=== PATIENT | male | born 1930 | race Caucasian/White ===

== ENCOUNTER → 2016-09-20 | Outpatient (CLI) | payer OTHER ==
[~2016-09-20] MED LIST: IOPAMIDOL (ISOVUE 370) 100 ML BTL IV ONE
--- NOTE | 2016-09-20 15:02 | CT ---
CT Angiogram Neck With Contrast Enhancement and Multiplanar Reconstructions at 0959 hours History: R55, syncope and collapse Comparison: None . Technique: 1.25 mm axial multidetector helical CT imaging was performed through the neck while 85 mL Isovue-370 were injected intravenously without complication. The images were then transferred to an independent workstation where multiplanar and three-dimensional reconstructions were performed by the interpreting physician and reviewed at multiple windows. Dose reduction techniques were utilized. CTA Findings: Moderate atherosclerotic plaque involving the aorta and origin of all the great vessels . Tortuous bilateral common carotid arteries. The right carotid bulb demonstrates moderate atheroscle rotic plaque with 30% diameter stenosis of the proximal right internal carotid artery. No complete oc clusion or dissection. Left carotid bulb demonstrates moderate atherosclerotic plaque with 45% stenos is of the proximal left internal carotid artery. No complete occlusion or dissection Dominant left vertebral artery with both vertebral arteries appearing patent. Vertebrobasilar junctio n is patent. No vertebral dissection or complete occlusion. No significant neck lymphadenopathy. Incidental cerebrovascular accident chronic calcification in lynn ateral cavernous internal carotid arteries. Cervical spondylosis with degenerative disk disease from C2-C3 through C6-C7, and degenerative des listhesis. Impression: 1. Moderate atherosclerotic disease of the aortic arch and origin of the great vessels. 2. Moderate atherosclerotic disease involving bilateral carotid bulbs, left greater than right. 3. Left ICA 50% atherosclerotic stenosis. 4. Right ICA 30% atherosclerotic stenosis. 5. Patent vertebral basilar arteries with a dominant left vertebral artery. Measurement of carotid stenosis is based on the residual internal carotid diameter with [place] n Symptomatic Carotid Endarterectomy Trial (NASCET) based stenosis levels.
== END ==
LOC: CIMAGING 09:20
PROVIDERS: ATTEND Psychiatry & Neurology Neurology
DX: R55 Syncope and collapse (principal); N19 Unspecified kidney failure
CPT/HCPCS: 70498; Q9967; 82565-PO

== ENCOUNTER → 2016-11-02 | Outpatient (CLI) | payer OTHER ==
[~2016-11-02] MED LIST changes: -IOPAMIDOL (ISOVUE 370) 100 ML BTL IV ONE; +IOPAMIDOL (ISOVUE-300) 100 ML BTL IV ONE
== END ==
LOC: FIMAGING 11:16
PROVIDERS: ATTEND Psychiatry & Neurology Neurology
DX: R55 Syncope and collapse (principal); R29.818 Other symptoms and signs involving the nervous system
CPT/HCPCS: 70496; Q9967

== ENCOUNTER 2016-11-07 12:56 | Inpatient (IN) | payer OTHER ==
--- NOTE | 2016-11-07 13:30 | CPEKG ---
Heart Rate: 73 RR Interval: 822 P-R Interval: 180 QRSD Interval: 152 QT Interval: 400 QTC Interval: 441 P Paulina: 39 QRS Paulina: 44 T Wave Paulina: 7 EKG Severity - ABNORMAL ECG - EKG Impression: SINUS RHYTHM EKG Impression: PROBABLE LEFT ATRIAL ABNORMALITY EKG Impression: RIGHT BUNDLE BRANCH BLOCK Electronically Signed By: Felipe Uribe 10-Nov-2016 12:07:06
[2016-11-07] MEDS ORDERED: NS 500 ML IV ONE (14:11)
[2016-11-07 14:20] LABS: % IMMATURE GRANULYOCYTES 0.3 % (0.0-1.1); ABSOLUTE IMMATURE GRANULOCYTES 0.02 10^3/uL (0.00-0.10); ADD DIFF? NO; ADD MORPH? NO; ADD SCAN? NO; ATYPICAL LYMPHOCYTE FLAG 10 (0-99); FRAGMENT RBC FLAG 0 (0-99); HEMOGLOBIN 15.3 g/dL (13.7-17.5); LEFT SHIFT FLG 0 (0-99); LIPEMIA HEMOLYSIS FLAG 90 (0-99); MEAN CELL HEMOGLOBIN 33.3 pg (27.9-34.1); MEAN CELL HEMOGLOBIN CONCENTR. 34.8 g/dL (32.4-36.7); MEAN CELL VOLUME 95.9 fL (81.5-99.8); MEAN PLATELET VOLUME 9.2 fL (8.7-11.7); PLATELET CLUMPS FLAG 20 (0-99); PLATELET COUNT 218 10^3/uL (150-400); RED BLOOD CELL COUNT 4.59 10^6/uL (4.40-6.38)
[2016-11-07 14:27] LABS: ANION GAP 12 mEq/L (8-16); CALCIUM 9.1 mg/dL (8.5-10.4); CARBON DIOXIDE 25 mEq/l (22-31); CHLORIDE 103 mEq/L (97-110); CREATININE 0.8 mg/dL (0.7-1.3); GLOMERULAR FILTRATION RATE > 60; GLUCOSE 100 mg/dL (70-100); POTASSIUM 4.2 mEq/L (3.5-5.2); SODIUM 140 mEq/L (134-144)
[2016-11-07 14:41] LABS: TROPONIN I < 0.012 ng/mL (0-0.034)
[2016-11-07 14:50] LABS: COLOR YELLOW; LEUKOCYTE ESTERASE,URINE NEGATIVE (NEGATIVE); NITRITE,URINE NEGATIVE (NEGATIVE)
[2016-11-07 15:09] LABS: WBC,URINE 0-1 /hpf (0-3)
[2016-11-07 15:10] LABS: BACTERIA TRACE /hpf (NONE SEEN); MUCUS 1+ /lpf (NONE-1+)
--- NOTE | 2016-11-07 15:28 | UCPHY ---
H & P Patient Type: Established Chief Complaint Nursing Narrative: BLOOD PRESSURE HIGH, LIGHTHEADED, NEARLY PASSED OUT SEVERAL TIMES, HAS TAKEN TWO NITROSTAT, AND EXTRA BENEZEPRIL Time Seen by Provider: 11/07/16 13:56 HPI/ROS: CHIEF COMPLAINT: Lightheadedness HISTORY OF PRESENT ILLNESS: This is an 85-year-old male who states that since this fall he has had nearly daily episodes of lightheadedness, feeling like he might faint. Denies vertiginous symptoms. These episodes can occur when he has significantly elevated blood pressure or with his blood pressure is normal. He has been evaluated by Dr. Avery as well as by Dr. Uribe. Patient had a Holter monitor for 30 days done a month and a half ago that demonstrated 10 second episode of atrial fibrillation but no other abnormalities. Patient is scheduled to have a LINQ placed tomorrow. Today the patient developed a episode of lightheadedness which was by his description much worse than previously. He still continues to feel lightheaded even while lying flat. When he developed the lightheadedness he noted his blood pressure to be 212 systolic. He took a Nitrostat his blood pressure diminished to 180 systolic. He took an additional Nitrostat as well as an additional dose of his Benadryl 5 mg and on arrival to the emergency department his blood pressure is 1/60. He tells me that does lightheadedness has been persistent for the last 2 and half to almost 3 hours. Patient denies any chest pain. He denies shortness of breath. Denies a sensation of palpitations. No recent vomiting, diarrhea, cold, cough symptoms, and no headache recently. No complaints of vertigo or spinning sensation. REVIEW OF SYSTEMS: Aside from elements discussed in the HPI, a comprehensive 10-point review of systems was reviewed and is negative. PAST MEDICAL HISTORY: Hypertension, reflux. No history of coronary artery disease. Does report he has a systolic murmur. Echocardiogram follow-up scheduled the next several months. SOCIAL HISTORY: Nonsmoker. VITAL SIGNS Reviewed by me. GENERAL: Well-developed, well-nourished, resting comfortably in no respiratory distress. States he feels lightheaded when he is asked to sit up. HEENT: Atraumatic. Eyes: No icterus, no injection. Mouth: moist mucous membranes. No erythema or lesions. Neck: supple with no adenopathy. LUNGS: Clear to auscultation bilaterally, no wheezes, rhonchi or rales. CARDIAC: Regular rate and rhythm, blowing systolic murmur. ABDOMEN: Soft, nontender, nondistended, bowel sounds normal. BACK: No CVA tenderness. EXTREMITIES: No trauma. No edema. Range of motion is normal throughout. NEURO: Alert and oriented, grossly nonfocal. SKIN: Warm and dry, no rash. PSYCHIATRIC: Normal mentation, no agitation. - Personal History Current Tetanus/Diphtheria Vaccine: Unsure - Medical/Surgical History Hx Asthma: No Hx Chronic Respiratory Disease: No Hx Diabetes: No Hx Cardiac Disease: Yes Hx Renal Disease: No Hx Cirrhosis: No Hx Alcoholism: No Hx HIV/AIDS: No Hx Splenectomy or Spleen Trauma: No Other PMH: HTN. vasectomy. lami. carpal tunnel - Family History Significant Family History: No pertinent family hx - Social History Smoking Status: Former smoker Constitutional: Initial Vital Signs Temperature (C) 36.6 C 11/07/16 13:06 Heart Rate 75 11/07/16 13:06 Respiratory Rate 16 11/07/16 13:06 Blood Pressure 160/78 H 11/07/16 13:06 O2 Sat (%) 95 11/07/16 13:06 O2 Delivery Mode Nasal Cannula O2 (L/minute) 1 Allergies/Adverse Reactions: Penicillins Allergy (Verified 11/07/16 13:11) Home Medications: Medication Instructions Recorded Aspirin EC [Aspirin EC 81 mg (*)] 81 mg PO HS 11/07/16 Benazepril HCl 5 mg PO DAILY 11/07/16 C/E/Zn/Cu/OM3/DHA/EPA/LUT/ZEAX 2 each PO DAILY 11/07/16 [Preservision Areds 2 Softgel] Cholecalciferol Vit D3 [Vitamin D3 2,000 units PO .TWICE WEEKLY 11/07/16 (*)] Cyanocobalamin [Vitamin B12 (*)] 1,000 mcg PO .TWICE WEEKLY 11/07/16 Omeprazole [Prilosec 20 mg] 40 mg PO HS 11/07/16 Simvastatin [Zocor] 40 mg PO HS 11/07/16 amLODIPine BESYLATE [Norvasc 2.5 2.5 mg PO DAILY #30 tab 11/09/16 mg (*)] Medical Decision Making - Diagnostics EKG Interpretation: 12-LEAD EKG: Please see the full report in [facility]. My interpretation: Right bundle branch block. ED Course/Re-evaluation: 85-year-old male presenting with lightheadedness. He has had symptoms similar for several months but today's episode is much more severe and persistent. Patient initially had significantly elevated blood pressures, and took 2 nitroglycerin tablets. On arrival to the emergency department his blood pressure remains [address]. On my examination is blood pressure was 120/55. On re- examination patient's blood pressure had increased to 155/83. EKG discussed with Dr. Miguel Ángel Gonzalez. Patient's bundle branch block appears to be pre-existing. Labs are reassuring. Negative troponin. Patient will be transferred and admitted to [facility], for further evaluation of this episode of lightheadedness. At the time admission decision the patient reports some ongoing feelings of lightheadedness. Differential Diagnosis: Differential diagnosis of the patient's dizziness was considered including but not limited to peripheral and central causes of vertigo, cardiac arrhythmias, cardiac ischemia, electrolyte disturbances, neurologic causes, orthostatic causes including dehydration, and blood loss. Consult/Admit Bed Type: Dr Sapp, [facility] [place] - Data Points Laboratory Results: Laboratory Results 11/08/16 05:12 11/08/16 05:12 Medications Given: Discontinued Medications Amlodipine Besylate (Norvasc) 2.5 mg PO DAILY [facility] Stop: 05/06/17 18:29 Last Admin: 11/09/16 08:19 Dose: 2.5 mg Aspirin Buffered (Aspirin Ec) 81 mg PO HS NATAN Stop: 05/06/17 20:59 Last Admin: 11/08/16 20:15 Dose: 81 mg Atorvastatin Calcium (Lipitor) 20 mg PO HS NATAN Stop: 05/06/17 20:59 Last Admin: 11/08/16 20:15 Dose: 20 mg Benazepril HCl (Lotensin) 5 mg PO DAILY NATAN Stop: 05/07/17 08:59 Last Admin: 11/09/16 08:19 Dose: 5 mg Enoxaparin Sodium (Lovenox) 40 mg SC DAILY NATAN Stop: 05/08/17 08:59 Last Admin: 11/09/16 08:20 Dose: Not Given Sodium Chloride (Ns) 500 mls @ 0 mls/hr IV ONCE ONE PRN Reason: As Directed Stop: 11/07/16 14:12 Last Admin: 11/07/16 14:26 Dose: 500 mls Lidocaine HCl (Lidocaine Hcl 1%) 0 ml MISC ONCE ONE Stop: 11/08/16 08:31 Last Admin: 11/08/16 09:00 Dose: Not Given Meclizine HCl (Meclizine Hcl) 12.5 mg PO BID PRN PRN Reason: Dizziness Stop: 05/07/17 12:48 Last Admin: 11/08/16 15:55 Dose: 12.5 mg Multivitamins/Minerals (Preservision Areds2 Formula) 2 each PO DAILY NATAN Stop: 05/07/17 08:59 Last Admin: 11/09/16 08:23 Dose: 1 each Pantoprazole Sodium (Protonix) 40 mg PO DAILY [facility] Stop: 05/07/17 08:59 Last Admin: 11/09/16 08:18 Dose: 40 mg Departure - Departure Disposition: [facility] Acute Clinical Impression: Lightheadedness, Rule out acute coronary syndrome Condition: Fair - PQRS PQRS Measurement: 134: Depression screening and followup, PRIME MD-PHQ2 (12 years and older) Over the last 2 weeks, how often have you been bothered by any of the following problems? 1. Feeling down, depressed, or hopeless? 2. Little interest or pleasure in doing things? Patient answered no to both 1 and 2 130: Documentation of medications. Reviewed all patient medications, doses, route and frequency. 226: Do you smoke? No. 47: 65 and older: Advanced care planning. Patient has advanced directive. 51: 18 years old and older with diagnosis of COPD, spirometry performance. Patient has no history of COPD 52: 18 years old and older with COPD and symptoms of COPD or FEV1<60% predicted prescribed a B Agonist. Patient has no history of COPD.
[2016-11-07] MEDS ORDERED: ONDANSETRON 4 MG/2 ML VIAL IVP PRN (18:23)
[2016-11-07] MEDS ORDERED: ONDANSETRON DISINTEGRATING 4 MG TAB PO PRN (18:23)
[2016-11-07] MEDS ORDERED: ACETAMINOPHEN 325 MG TAB PO PRN (18:23)
--- NOTE | 2016-11-07 19:02 | GHP ---
[f rep st] HISTORY AND PHYSICAL DATE OF ADMISSION: 11/07/2016 CHIEF COMPLAINT: Dizziness. HISTORY OF PRESENT ILLNESS: This is an 85-year-old man who has had ongoing dizziness/lightheadednes s since April. This began when he was sitting at his desk and had an episode of syncope. He fe lt he had a prodrome of dizziness. He did not have any shortness of breath or chest pain. This has persisted though he has not had another episode of syncope since then. It is intermittent, comes a nd goes. He has had a thorough workup at this point including brain imaging with CT angio of his he ad and neck. CT angio of his neck showed 50% stenoses but nothing significantly flow-limiting. He has been under the care of Dr. Uribe with Cardiology who was actually planning on placing a Link mo nitor tomorrow. He has had a Holter monitor, which showed 1 episode of Afib though it seemed, per Socrates Uribe's note, unclear if he was actually wearing the monitor at the time that that was seen. He had an echocardiogram about 3 years ago, which I do not have access to. He tells me that his eject ion fraction was mildly diminished. He has never had an ischemic eval. He has never fallen. He do es not feel nauseous with this. It is not associated with any chest pain or shortness of breath. I t is not vertiginous in nature. The patient took his blood pressure at home and found that it was quite elevated with systolic at 22 0. He then took a Nitrostat as well as an extra benazepril. It was as low as 120 in Urgent Care wh ere he presented. PAST MEDICAL/SURGICAL HISTORY: 1. Hiatal hernia. 2. Right bundle branch block. 3. Hyperlipidemia. 4. Hypertension. 5. Heart murmur. 6. GERD. PAST SURGICAL HISTORY: 1. Carpal tunnel release. 2. Cataract. 3. Laminectomy. 4. Prostatectomy. 5. Vasectomy. MEDICATIONS: Please see medication reconciliation. ALLERGIES: Penicillin. FAMILY HISTORY: His father had an UT about [id number]. SOCIAL HISTORY: He has 2 kids, he has a few alcoholic drinks a week. He used to work as an enginee r. PHYSICAL EXAM: VITAL SIGNS: Blood pressure currently 198/86, heart rate of 64, respiration rate 16 , saturating 95% on room air. Temperature 36.4. GENERAL: The patient is a pleasant man who is res ting comfortably in bed in no acute distress. HEENT: Shows to be normocephalic, atraumatic. CARDIO VASCULAR EXAM: Shows a prominent 3/6 crescendo-decrescendo murmur, otherwise, no rubs or gallops. PULMONARY EXAM: Shows lungs clear to auscultation bilaterally. ABDOMINAL EXAM: Soft, nontender, n ondistended. SKIN: No rash. EXAM: No [place]. NEUROLOGIC EXAM: Shows him to be alert and orie nted x3. He has strength intact in his upper and lower extremities. Sensation is intact. He does not have any horizontal nystagmus. PSYCHIATRIC EXAM: Shows normal mood and affect. LABS: CBC is normal. Basic metabolic panel is normal. Troponin is negative. Urinalysis is relati vely unremarkable. DATA: I reviewed his old CT angio of his head and neck. I discussed with Dr. Olson, will admit to med/surg/observation. IMPRESSION AND PLAN: 1. Dizziness: Has had a relatively thorough workup. Given his prominent murmur, would lean toward s cardiovascular etiology. I have written to repeat an echo. He had plans to have a Link device pl aced tomorrow by Dr. Uribe. Will ask my colleague tomorrow to apprise Dr. Uribe of his admission. Consider Link monitor as an inpatient. Could consider an MRI if everything else is negative, thou gh I think that this would be relatively low yield. He has seen Dr. Avery. He has an abnormal EKG though in review of his previous, does not seem to be changed. Would defer an ischemic eval to Cardiology. 2. Hypertension, uncontrolled: I think part of his uncontrolled hypertension is being admitted as an inpatient. I will give him low-dose amlodipine and will follow this overnight. We will also con tinue his benazepril. 3. Venous thromboembolism risk: He is moderate risk though he is being admitted on observation. W ould start Lovenox if he stays as an inpatient. 4. He would like to be full code, full tube, but would not want any overly heroic method jolie-angie can. /[id number]/MODL
[2016-11-07] MEDS ORDERED: CHOLECALCIFEROL VIT D3 1,000 UNITS TAB PO SCH (21:00)
[2016-11-07] MEDS ORDERED: NON-FORMULARY NEW DRUG (Simvastatin [Zocor] 40 MG) PO SCH (21:00)
[2016-11-07] MEDS ORDERED: CYANO/VITAMIN B12 1000 MCG TAB PO SCH (21:00)
[2016-11-07] MEDS ORDERED: NON-FORMULARY NEW DRUG (Omeprazole [Prilosec 20 Mg] 40 MG) PO SCH (21:00)
[2016-11-07] MEDS: ASPIRIN EC 81 MG TAB PO SCH (21:11)
[2016-11-07] MEDS: ATORVASTATIN CALCIUM 20 MG TAB PO SCH (21:11)
[2016-11-08 05:43] LABS: % IMMATURE GRANULYOCYTES 0.3 % (0.0-1.1); ABSOLUTE IMMATURE GRANULOCYTES 0.02 10^3/uL (0.00-0.10); ADD DIFF? NO; ADD MORPH? NO; ADD SCAN? NO; ATYPICAL LYMPHOCYTE FLAG 0 (0-99); FRAGMENT RBC FLAG 0 (0-99); HEMATOCRIT 41.2 % (40.0-51.0); HEMOGLOBIN 14.1 g/dL (13.7-17.5); LEFT SHIFT FLG 0 (0-99); LIPEMIA HEMOLYSIS FLAG 90 (0-99); MEAN CELL HEMOGLOBIN 33.2 pg (27.9-34.1); MEAN CELL HEMOGLOBIN CONCENTR. 34.2 g/dL (32.4-36.7); MEAN CELL VOLUME 96.9 fL (81.5-99.8); MEAN PLATELET VOLUME 9.1 fL (8.7-11.7); PLATELET CLUMPS FLAG 0 (0-99); PLATELET COUNT 177 10^3/uL (150-400); RED BLOOD CELL COUNT 4.25 10^6/uL (4.40-6.38); RED CELL DISTRIBUTION WIDTH 13.1 % (11.5-15.2)
[2016-11-08 05:53] LABS: ALANINE AMINOTRANSFERASE 30 IU/L (21-72); ALBUMIN 3.4 g/dL (3.5-5.0); ALKALINE PHOSPHATASE 62 IU/L (38-126); ANION GAP 9 mEq/L (8-16); ASPARTATE AMINOTRANSFERASE 18 IU/L (17-59); BILIRUBIN,TOTAL 0.8 mg/dL (0.1-1.4); CARBON DIOXIDE 22 mEq/l (22-31); CHLORIDE 108 mEq/L (97-110); CREATININE 0.8 mg/dL (0.7-1.3); GLOMERULAR FILTRATION RATE > 60; GLUCOSE 93 mg/dL (70-100); POTASSIUM 4.4 mEq/L (3.5-5.2); SODIUM 139 mEq/L (134-144); TOTAL PROTEIN 6.1 g/dL (6.3-8.2)
[2016-11-08] MEDS ORDERED: LIDOCAINE 1% 30 ML SDV ONE (07:59)
[2016-11-08] MEDS ORDERED: LIDOCAINE 1% 30 ML SDV MISC ONE (08:30)
--- NOTE | 2016-11-08 08:49 | SUROPNOTE ---
[facility] Operative Report - Surgery PROCEDURE: Linq implant INDICATION: Dizziness, assessment for arrhythmia PROCEDURE DETAILS: After consent, patient was draped in usual fashion. Localization of the placement with palpation. Lidocaine (1%) was used for local anesthetic. A #12 blade was used for initial incision, followed by the provided blade for proper width. The rail delivery system was placed without difficulty and the device was implanted. SN: [id number] Three antonina were placed over the small incision. No complications were appreciated Device was interrogated with very good waveforms noted Follow up is scheduled.
--- NOTE | 2016-11-08 08:51 | HOSPPROG ---
Hospitalist Progress Note Assessment/Plan: patient is an 85-year-old man has had ongoing dizziness, lightheadedness in April. He had 1 episode of syncope and none further. He does have a prodrome of dizziness. He has had no chest pain or shortness of breath. He has been seen by Dr. Uribe with Cardiology. And has had an extensive w/u with Dr Avery. He shares that his symptoms have improved when at sea level. He was in [place] the month of September and felt overall well. His dizziness starts in the morning and increases through out the day. He is getting a link placed today. today is my 1st encounter with the patient. Chart reviewed. * Dizziness - patient has had a relatively negative workup. - Repeat echo is pending - link device placed this morning - no significant changes in orthostatic vital signs - reviewed CT studies/no clear cut etiology - reviewed his care with Dr Avery/ no MRI indicated at this time - spoke with ENT and her recommendation is for Juarez to get f/u with a dizziness specialist at / DR Ning Ureña (could be multifactorial) - will ask PT and OT to evaluate - trial of meclizine * hypertension/uncontrolled - better this morning - on amlodipine -took ntg at home to bring it down * heart murmur -will follow -if he has / could contribute to his symptoms * dvt prophylaxis: will initiate LMWH *Plan: patient is concerned about falling at home/ will ask PT and OT to further evaluate/ trial of meclizine/ he is not safe for dc and will require another midnight stay for evaluation. Subjective: Juarez does not have any nausea, or room spinning with dizziness/ feeling fine this morning. Objective: Vital Signs Temp Pulse Resp BP Pulse Ox 36.5 C 63 16 144/70 H 95 11/08/16 03:15 11/08/16 03:15 11/08/16 03:15 11/08/16 03:15 11/08/16 03:15 Laboratory Results 11/08/16 05:12 11/08/16 05:12 11/07/16 11/08/16 11/09/16 05:59 05:59 05:59 Intake Total 500 Balance 500 - Physical Exam Constitutional: no apparent distress Eyes: PERRL Ears, Nose, Mouth, Throat: hearing normal Cardiovascular: regular rate and rhythym, systolic murmur Respiratory: no respiratory distress Gastrointestinal: normoactive bowel sounds Skin: warm Musculoskeletal: full muscle strength Neurologic: AAOx3 Psychiatric: interacting appropriately, not anxious ICD10 Worksheet Patient Problems: Problems Problem Status Onset Lightheadedness Acute
[2016-11-08] MEDS ORDERED: BENAZEPRIL HCL 5 MG PO SCH (09:00)
[2016-11-08] MEDS: PANTOPRAZOLE SODIUM 40 MG TAB PO SCH (09:32)
[2016-11-08] MEDS: PRESERVISION AREDS2 FORMULA EYE VIT 1 EACH PO SCH (09:32)
[2016-11-08] MEDS: BENAZEPRIL HCL 10 MG TAB PO SCH (09:37)
--- NOTE | 2016-11-08 11:59 | ECHO ---
[id number] + + [address] : : [place] [address] : : [phone] + + Adult Echocardiographic Report + ----+ :Name: AMAYA BELL Milomariama Date: 11/08/2016 08:41 AM : : Hospital Admission Number: [id number] Location: 389: :: 1930 Gender: Male Height: 67 in : :Age: 85 yrs Race: WH Weight: 147 lb : :Reason For Study: Eval LV Fx : : BSA: 1.8 meters2 : :History: Near Syncope, Post Link : + ----+ MMode/2D Measurements \T\ Calculations IVSd: 1.1 cm LVIDd: 3.9 cm FS: 39.1 % Ao root diam: 3.5 cm LVPWd: 1.0 cm LVIDs: 2.4 cm EDV(Teich): 67.2 ml ACS: 1.3 cm ESV(Teich): 20.0 ml LA dimension: 3.4 cm EF(Teich): 70.2 % LVOT diam: 2.1 cm LVOT area: 3.5 cm2 Normal Measurement Values: + + :LVIDd (3.5-5.7cm) IVSd (0.6-1.1cm) LVPWd (0.6-1.1cm) Aortic Root (2.0-3.7cm)Left Atrium (1.5-4.0cm): :LV Vol(d) (76-115ml) LV Vol(s) (29-48ml) Ejec Fraction (50-65%)PV Rocky (0.6- 1.2m/s) TV Rocky (0.4-1.0m/s) : :MV E Rocky (0.8-1.0m/s)MV A Rocky (0.3-1.0m/s)LVOT Rocky (0.7-1.2m/s) Asc Ao Rocky ( 0.9-1.8m/s) : + + Doppler Measurements \T\ Calculations MV E max rocky: Ao V2 max: LV V1 max: SV(LVOT): 62.2 cm/sec 298.6 cm/sec 71.1 cm/sec 69.1 ml MV A max rocky: Ao max P.7 mmHg LV V1 max P.5 cm/sec Ao mean P.0 mmHg MV E/A: 0.78 23.3 mmHg LV V1 mean PG: Ao V2 mean: 0.98 mmHg 229.1 cm/sec LV V1 mean: Ao V2 VTI: 77.4 cm 43.3 cm/sec LV V1 VTI: 20.0 cm JUSTYNA(I,D): 0.89 cm2 JUSTYNA(V,D): 0.82 cm2 PA V2 max: 81.4 cm/sec PA max P.7 mmHg Left Ventricle The left ventricle is normal in size. The left ventricular ejection fraction is normal. There is Doppler evidence for diastolic dysfunction. Ejection Fraction = 71%. No regional wall motion abnormalities noted. Right Ventricle The right ventricle is normal in size and function. Atria The left atrial size is normal. Right atrial size is normal. Mitral Valve The mitral valve is normal in structure and function. There is no mitral valve stenosis. There is no mitral regurgitation noted. Tricuspid Valve Normal tricuspid valve. No tricuspid regurgitation. Aortic Valve Mild-Moderate Aortic Valve Calcification. There is turbulent flow thru the aortic valve with a Ao peak velocity of 2.9 m/sec with a Ao mean PG 24 mmHg and a max PG of 35 mmHg. Mild valvular aortic stenosis. There is no aortic insufficiency. Pulmonic Valve The pulmonic valve is normal in structure and function. There is no pulmonic valvular regurgitation. Great Vessels The aortic root is normal size. Pericardium/Pleural There is no pericardial effusion. Conclusion A complete two-dimensional transthoracic echocardiogram was performed (2D, M-mode, Doppler and color flow Doppler). The left ventricular ejection fraction is normal. There is Doppler evidence for diastolic dysfunction. Ejection Fraction = 71%. The mitral valve is normal in structure and function. There is turbulent flow thru the aortic valve with a Ao peak velocity of 2.9 m/sec with a Ao mean PG 24 mmHg and a max PG of 35 mmHg. Mild valvular aortic stenosis. There is no pericardial effusion. Final Reading Physician: Italia Vides signed on 11/08/2016 11:58 AM Ordering Physician: Ace Sapp Performed By: Yg Pierre, STOOCS
[2016-11-08] MEDS ORDERED: MECLIZINE HCL 25 MG TAB PO PRN (12:49)
[2016-11-08] MEDS: ASPIRIN EC 81 MG TAB PO SCH (20:15)
[2016-11-08] MEDS: ATORVASTATIN CALCIUM 20 MG TAB PO SCH (20:15)
[2016-11-09 04:47] VITALS: O2SAT 92
[2016-11-09] MEDS: PANTOPRAZOLE SODIUM 40 MG TAB PO SCH (08:18)
[2016-11-09] MEDS: BENAZEPRIL HCL 10 MG TAB PO SCH (08:19)
[2016-11-09] MEDS: PRESERVISION AREDS2 FORMULA EYE VIT 1 EACH PO SCH ×2 (08:19→08:23)
[2016-11-09 08:20] VITALS: BP 145/88
[2016-11-09 08:39] VITALS: PULSE 69; RESP 16; TEMP 97.9
--- NOTE | 2016-11-09 08:49 | HOSPPROG ---
Hospitalist Progress Note Assessment/Plan: patient is an 85-year-old man has had ongoing dizziness, lightheadedness in April. He had 1 episode of syncope and none further. He does have a prodrome of dizziness. He has had no chest pain or shortness of breath. He has been seen by Dr. Uribe with Cardiology. And has had an extensive w/u with Dr Avery. He shares that his symptoms have improved [place] sea [place]. He was in [place] the month of September and felt overall well. His dizziness starts in the morning and increases through out the day. He had a link placed yesterday. * Dizziness - patient has had a relatively negative workup. - Ejection fraction of 71%. Doppler evidence for diastolic dysfunction mild aortic stenosis with a turbulent flow through the aortic valve - link device placed - no significant changes in orthostatic vital signs - reviewed CT studies/no clear cut etiology - reviewed his care with Dr Avery/ no MRI indicated at this time - spoke with ENT and her recommendation is for Juarez to get f/u with a dizziness specialist at / DR Ning Ureña (could be multifactorial) - will ask PT and OT to evaluate - trial of meclizine did not help * hypertension/uncontrolled - better this morning - on amlodipine -took ntg at home to bring it down * heart murmur - further follow up with Cardiology * dvt prophylaxis: LMWH *Plan: DC today /further f/u with cardiology and Dr Ureña Subjective: Juarez still is dizzy this morning. Objective: Vital Signs Temp Pulse Resp BP Pulse Ox 36.6 C 69 16 145/88 H 92 11/09/16 08:00 11/09/16 08:00 11/09/16 08:00 11/09/16 08:19 11/09/16 08:00 11/08/16 11/09/16 11/10/16 05:59 05:59 05:59 Intake Total 250 Balance 250 - Physical Exam Constitutional: no apparent distress, appears nourished, not in pain Eyes: PERRL Ears, Nose, Mouth, Throat: hearing normal Cardiovascular: regular rate and rhythym, systolic murmur Respiratory: no respiratory distress Gastrointestinal: normoactive bowel sounds Skin: warm, normal color Neurologic: AAOx3 Psychiatric: interacting appropriately, not anxious ICD10 Worksheet Patient Problems: Problems Problem Status Onset Lightheadedness Acute
[2016-11-09] MEDS ORDERED: ENOXAPARIN 40 MG/0.4 ML SYR SC SCH (09:00)
--- NOTE | 2016-11-09 10:26 | PDIAF ---
- Diagnosis Diagnosis: dizziness Code Status: Full Code - Medication Management Discharge Medications: Medications to Continue on Transfer Aspirin EC [Aspirin EC 81 mg (*)] 81 mg PO HS 11/07/16 [Last Taken 11/06/16] Benazepril HCl 5 mg PO DAILY 11/07/16 [Last Taken 11/07/16] C/E/Zn/Cu/OM3/DHA/EPA/LUT/ZEAX [Preservision Areds 2 Softgel] 2 each PO DAILY [Last Taken 11/07/16] Cholecalciferol Vit D3 [Vitamin D3 (*)] 2,000 units PO .TWICE WEEKLY 11/07/16 [ Last Taken Unknown] Cyanocobalamin [Vitamin B12 (*)] 1,000 mcg PO .TWICE WEEKLY 11/07/16 [Last Taken Unknown] Omeprazole [Prilosec 20 mg] 40 mg PO HS 11/07/16 [Last Taken 11/06/16] Simvastatin [Zocor] 40 mg PO HS 11/07/16 [Last Taken 11/06/16] amLODIPine BESYLATE [Norvasc 2.5 mg (*)] 2.5 mg PO DAILY #30 tab 11/09/16 [Last Taken Unknown] Discharge Medications: Refer to the Discharge Home Medication list for PRN reason. - Orders Services needed: Home Care, Physical Therapy, Occupational Therapy Home Care Face to Face: I certify that this patient was under my care and that I had the required [id number] encounter meeting the encounter requirements on the discharge day. My findings support the fact that the patient is homebound as defined in CMS Chapter 7 Medicare Benefits Manual 30.1.1, The condition of the patient is such that there exists a normal inability to leave home and consequently, leaving home would require a considerable and taxing effort. Diet Recommendation: no restrictions on diet Diet Texture: Regular Texture Diet Activity/Weight Bearing Restrictions: as tolerated/ work with balance, etc/ patient has ongoing dizziness Equipment: cane - Follow Up Care Current Providers and Referrals: Wilman Lin MD [Primary Care Provider] - Felipe Uribe MD [Medical Doctor] -
--- NOTE | 2016-11-09 11:42 | GDS ---
[f rep st] DISCHARGE SUMMARY DISCHARGE DIAGNOSES: 1. Persistent dizziness. 2. Hypertension. 3. Heart murmur. Briefly, the patient is a very nice 85-year-old man who has had ongoing dizziness and lightheadedness since April. It began when he had an episode of syncope back in April. He thought this was the prodrome of his dizziness. He had no shortness of breath or chest pain. This has persisted, though he has not had any further episodes of syncope. It comes and goes. He has had a detailed workup with Dr. Marquis Avery and Dr. Uribe. He had a CT angio that showed 50% stenosis but nothing flow limiting. He also during his stay had a Link monitor placed to monitor if he has any underlying atrial fibrillation. He had an echocardiogram performed during his stay which showed Doppler evidence for diastolic dysfunction, EF of 71%. He has trivial flow to the aortic valve with an AO peak velocity of 2.9. He has mild valvular stenosis. His dizziness has been persistent. I reviewed his care with ENT. They gave me a dizziness expert's name that I have given to the patient. HOSPITAL COURSE: 1. Dizziness. Out patient physical therapy and occupational therapy. I have recommended no driving. 2. Hypertension, better this morning. Amlodipine is a new medication added to his medication regimen. 3. Heart murmur. This is also noted on his echocardiogram. Further followup with Cardiology. PENDING LABS AND TESTS: None. CONDITION AT DISCHARGE: Stable. Blood pressure is 145/88. Heart rate is 69. Respiratory rate is 16. O2 sats on room air are 92%. Temperature 36.6 Celsius. MEDICATIONS AT DISCHARGE: Please see the EMR. DISCHARGE INSTRUCTIONS: 1. No driving while he is dizzy. 2. Follow up with Dr. Uribe. 3. To follow up with Ning Ureña, a dizziness specialist at [facility]. Greater than 30 minutes discharging and coordinating care. /[id number]/MODL MTDD
[2016-11-10] MEDS ORDERED: CHOLECALCIFEROL VIT D3 1,000 UNITS TAB PO SCH (09:00)
[2016-11-10] MEDS ORDERED: CYANO/VITAMIN B12 1000 MCG TAB PO SCH (09:00)
== END 2016-11-09 12:51 | disposition home or self-care (01) | DRG 149 ==
LOC: CED 12:56 → CEDHOLD 14:50 → F3E 17:38 → OBSVTOIN 11-08 08:47 → INTOOBSV 11-08 08:47
PROVIDERS: ADMIT Student in an Organized Health Care Education/Training Program; ATTEND Internal Medicine
PROC: 0WH83YZ Insertion of Other Device into Chest Wall, Percutaneous Approach (ICD-10-PCS; principal; 2016-11-08)
DX: R42 Dizziness and giddiness (principal); I10 Essential (primary) hypertension; R01.1 Cardiac murmur, unspecified; K21.9 Gastro-esophageal reflux disease without esophagitis; E78.5 Hyperlipidemia, unspecified
CPT/HCPCS: 80048-PO; 81003-PO; 81015-PO; 84484-PO; 85025-PO; 96360-PO; 97161-GP; C1764; G0378; G0463-PO; G8978-GP-CI; G8979-GP-CI; G8980-GP-CI; J1650

== ENCOUNTER → 2017-02-07 | Outpatient (CLI) | payer OTHER | LOC: FIMAGING 15:08 | PROVIDERS: ATTEND Physical Medicine & Rehabilitation | DX: M48.06 Spinal stenosis, lumbar region (principal); N28.1 Cyst of kidney, acquired ==

== ENCOUNTER → 2018-05-31 | Outpatient (CLI) | payer OTHER | LOC: FIMAGING 12:30 | PROVIDERS: ATTEND Physical Medicine & Rehabilitation | DX: M51.36 Other intervertebral disc degeneration, lumbar region (principal) ==